=== PATIENT | male | born 1960 | race Caucasian/White ===

== ENCOUNTER 2021-10-12 13:40 | Emergency (ER) | payer SELFPAY ==
--- OUTSIDE RECORDS SUMMARY | 2021-10-12 13:44 | XMS REPORT | Continuity of Care Document ---
:1960 Author Organization [facility] t Address [address] [place] [address] Care Team Providers Name Role Phone Faulconer Attending Clinician Problems Condition Condition Condition Status Onset Resolution Last Treating Co mments Source Name Details Category Date Date Treatment Clinician Date No known No known Disease Unive rs active active ity of problems problems [facility] Allergies, Adverse Reactions, Alerts Allergy Allergy Status Severity Reaction(s) Onset Inactive Treating Comm ents Source Name Type Date Date Clinician Codeine Propensi Active Unknown - Seizure Uni vers ty to See comments 03-06 ity of adverse 00:00: [place] reaction 00 Medical s Branch CODEINE DRUG Active Unknown-Cmnt Uni vers INGREDI 03-06 ity of 00:00: [place] 00 Medical Branch Social History Social Habit Start Date Stop Date Quantity Comments Source Sex Assigned At Uni versity [facility] Exposure to SARS-CoV-2 Not sure [facility] [place] (event) [facility] Smoking Status Start Date Stop Date Source Unknown if ever smoked Universit y [facility] Medications Ordered Filled Start Stop Current Ordering Indication Dosage Frequency Signature Comments Components Source Medication Medication Date Date Medication? Clinician (SIG) Name Name amoxicillin 2020- No 1{tbl} 1 tablet, Univers -clavulanat 04-25 Oral, ity of e 04:00: 04:05 ONCE, 1 [place] (AUGMENTIN) 00 :00 dose, [facility] 875-125 mg 04/24/20 at [facility] per tablet 2300, 1 tablet ANT
Re ason for Anti-Infec tive: Documented Infection< br>Documen soledad Infection Site: Abdominal< br>Duratio n of Therapy: 7 days ibuprofen 2019- 2020- No 800mg 800 mg, Uni vers (IBU) 04-25 Oral, ity of tablet 800 02:30: 01:37 ONCE, 1 [place] as mg 00 :00 dose, [facility] 04/24/20 at Branch 2130, ANT ibuprofen 2019-0 Yes [id number] 800mg Take 1 Univers 800 mg 8-20 tablet by ity of tablet 00:00: mouth [place] 00 every 8 Medical (eight) Branch hours as needed for Temp > 38.5 C. amoxicillin 2019- 2020- No [id number] 1{tbl} Take 1 Univers -clavulanat 8-24 04- tablet by it y of e 875-125 00:00: 04:59 mouth [place] mg per 00 :00 every 12 Medical tablet (twelve) Branch hours for 7 days. naproxen 2018- Yes [id number] 550mg Take 1 Univers sodium 10-04 [id number] tablet by ity of (ANAPROX 00:00: mouth 2 [place] DS) 550 mg 00 (two) Medical tablet times Branch daily with meals. traMADol Yes [id number] 100mg Take 1 Univers 100 mg 24 10-04 [id number] tablet by ity of hr tablet 00:00: mouth [place] 00 daily. [facility] Immunizations Ordered Filled Immunization Date Status Comments [facility] e Immunization Name Name Td 2017-03-06 Completed [facility] 00:00:00 [facility] Vital Signs Vital Name Observation Time Observation Value Comments Source Systolic blood 2020-04-25 04:00:00 148 [facility]Hg[facility] Diastolic blood 2020-04-25 04:00:00 91 mm[Hg] [facility] Heart rate 2020-04-25 04:00:00 97 /min [facility] Respiratory rate 2020-04-25 04:00:00 19 /min [facility] Oxygen saturation in 2020-04-25 04:00:00 96 /min [facility] Arterial blood by [facility] Pulse oximetry Branch Body temperature 2020-04-25 00:46:00 38.22 [place] [facility] Body weight 2020-04-25 00:46:00 117.935 kg [facility] BMI 2020-04-25 00:46:00 36.26 kg/m2 [facility] Procedures Procedure Date / Time Performed Performing Clinician Sourc e CT ABDOMEN PELVIS WO 2020-04-25 02:17:00 Jose E Price [facility] CONTRAST Medical Branch COVID-19 (ID NOW RAPID 2020-04-25 02:00:00 [facility] Medical Branch URINALYSIS 2020-04-25 01:16:00 Jose E Price [facility] [place] [facility] NOTICE OF PRIVACY 2020-04-25 00:24:05 Doctor Unassigned, No [facility] PRACTICES Name Medical Branch CONSENT/REFUSAL FOR 2020-04-25 00:23:11 [facility] Name [facility] Branch TREATMENT Encounters Start End Encounter Admission Attending Care Care Encounter Source Date/Time Date/Time Type Type Clinicians Facility Department ID 2021-07-03 Emergency [facility] [id number] Univers 13:44:03 ity of [facility] 2020-04-24 2020-04-24 [facility] [id number] Univers 19:48:00 23:23:00 Jose E [place] [id number] i [facility] [id number] [facility] [id number] [facility] 084 Branch Results Test Test Test Results Result Source Description Time Comments Comments CT ABDOMEN Impression: 1. Acute Uni versity of PELVIS WO 21 sigmoid diverticulitis.2. [place] [facility] CONTRAST 03:40:49 Hepatomegaly.3. Upper Bra [facility] abdominal varices raise the possibility of portal venoushypertension.4. Atherosclerosis, including atherosclerotic artery disease. RL: 460 End of Report Ordering Physician: JOSE E PRICE History: Flank pain. Stone disease suspected.. Technique: CT abdomen and pelvis without intravenous contrast. Thisexamination was performed according to ALARA principles. Comparison: None. Findings: The liver is enlarged. The spleen is at the upper limits of normal in size.The gallbladder, pancreas, and adrenal glands are unremarkable.Specifically, there is no hydronephrosis and no radiopaque urinary tractcalculi are evident. Varices are seen within the upper abdomen. Evaluationof the stomach is limited by lack of distention, but no gross gastricabnormalities are apparent. There is atherosclerotic calcification of theabdominal aorta and its branches, with no evidence of aneurysm. The urinary bladder is unremarkable in appearance. Colonic diverticulosisis present. Stranding is seen adjacent to the distal sigmoid colon. Due totortuosity of the colon, this portion of the sigmoid is slightly to theright of midline. No abscess is present and no free intraperitoneal fluidor free intraperitoneal air is evident. An appendix is not visualized. Nopericecal inflammatory changes are evident. There is no bowel obstruction.Atheroscleroti c coronary artery disease is present. Mild subsegmentalatelectasis is seen within the included lung bases. There are degenerativechanges of the spine and hips. No acute bony abnormalities are evident. [facility], Radiant Results Inft User - 04/24/2020 10:41 PM CDTOrdering Physician: JOSE E CHAVARRIACONERHistory: Flank pain. Stone disease suspected..Technique: CT abdomen and pelvis without intravenous contrast. Thisexamination was performed according to ALARA principles.Comparison: None.Findings: The liver is enlarged. The spleen is at the upper limits of normal in size.The gallbladder, pancreas, and adrenal glands are unremarkable.Specifically, there is no hydronephrosis and no radiopaque urinary tractcalculi are evident. Varices are seen within the upper abdomen. Evaluationof the stomach is limited by lack of distention, but no gross gastricabnormalities are apparent. There is atherosclerotic calcification of theabdominal aorta and its branches, with no evidence of aneurysm.The urinary bladder is unremarkable in appearance. Colonic diverticulosisis present. Stranding is seen adjacent to the distal sigmoid colon. Due totortuosity of the colon, this portion of the sigmoid is slightly to theright of midline. No abscess is present and no free intraperitoneal fluidor free intraperitoneal air is evident. An appendix is not visualized. Nopericecal inflammatory changes are evident. There is no bowel obstruction.Atheroscleroti c coronary artery disease is present. Mild subsegmentalatelectasis is seen within the included lung bases. There are degenerativechanges of the spine and hips. No acute bony abnormalities are evident.IMPRESSIONImpressi on: 1. Acute sigmoid diverticulitis.2. Hepatomegaly.3. Upper abdominal varices raise the possibility of portal venoushypertension.4. Atherosclerosis, including atherosclerotic artery disease.RL: 460End of Report D-19 (ID NOW RAPID TESTING) 2020-04-25 02:47:00 Test Item Value Reference Range Interpretation Comme nts SARS-CoV-2 Rapid ID NOW (test code Not Detected Not Detected = 29120-7) JEOVANY (test code = JEOVANY) ID NOW COVID-19 Assay is an isothermal nucleic acid amplification test intended for the qualitative detection of nucleic acid from SARS-CoV-2 viral RNA in nasopharyngeal (BUTTON DECORATING MACHINE OPERATOR) specimens. It is used under Emergency Use Authorization (EUA) by FDA. The limit of detection (LOD) of the assay is 125 Genome Equivalents/mL. A positive result is indicative of the presence of SARS-CoV-2 RNA. ?Clinical correlation with patient history and other diagnostic information is necessary to determine patient infection status. A negative (Not Detected) result does not preclude SARS-CoV-2 infection. In patients with clinical symptoms and other tests that are consistent with SARS-CoV-2 infection, negative results should be treated as presumptive negative and a new specimen should be tested with alternative PCR molecular test. Invalid: Please collect a new specimen for repeat patient testing if clinically indicated. Lab Interpretation (test code = Normal 12263-4) [facility] Test Item Value Reference Range Interpretation Comments APPEARANCE (test code = Clear Clear 9117178292) COLOR (test code = Gwendolyn Yellow A 5344747119) PH (test code = 4.8-8.0 8962052385) SP GRAVITY (test code = 1.003-1.030 5141990396) GLU U QUAL (test code = Normal Normal 6787093283) BLOOD (test code = 3+ Negative A 5585990500) KETONES (test code = Negative Negative 2874907492) PROTEIN (test code = 100 mg/dL Negative A 2887-8) UROBILIN (test code = 4.0 mg/dL Normal A 7906200264) BILIRUBIN (test code = Negative Negative 8157653728) NITRITE (test code = Negative Negative 7835568129) LEUK ALTA (test code = Negative Negative 5764474318) RBC/HPF (test code = >182 See_Comment H [Autom ated message] 5801610139) The system [employer] generated this result transmit soledad reference range : 0 - 3 HPF. The refe rence range was not u sed to interpret th is result as normal/abnormal . WBC/HPF (test code = See_Comment [Autom ated message] 6708341444) The system [employer] generated this result transmit soledad reference range : 0 - 5 HPF. The refe rence range was not u sed to interpret th is result as normal/abnormal . BACTERIA (test code = Few Negative A 1718969397) MUCOUS (test code = Marked Negative LPF A 7740525117) Lab Interpretation (test Abnormal code = 89801-5) [facility]
[2021-10-12 15:05] LABS: Absolute Lymphocytes (CBC) 1.9 K/uL (0.7-4.9); Hematocrit 52.4 % (39.6-49.0); Lymphocytes % 19.8 % (15.3-44.8); MPV 9.2 fL (7.6-11.3); RBC Red Blood Cell Count 5.19 M/uL (4.33-5.43)
[2021-10-12 15:22] LABS: ALT/SGPT 23 U/L (12-78); AST/SGOT 14 U/L (15-37); Albumin 3.3 g/dL (3.4-5.0); Alkaline Phosphatase 112 U/L (45-117); BUN Blood Urea Nitrogen 14 mg/dL (7-18); Bicarbonate 27 mmol/L (21-32); Bilirubin Direct < 0.1 mg/dL (0-0.2); Bilirubin Total 0.3 mg/dL (0.2-1.0); Glucose Level 99 mg/dL (74-106); Lipase 89 U/L (73-393); Potassium 3.8 mmol/L (3.5-5.1); Protein, Total 6.8 g/dL (6.4-8.2); Sodium Level 140 mmol/L (136-145)
--- NOTE | 2021-10-12 16:03 | RAD REPORT ---
EXAM DESCRIPTION: CT - Abdomen Pelvis W Contrast - 10/12/2021 3:49 pm CLINICAL HISTORY: Abdominal pain COMPARISON: none. TECHNIQUE: Computed axial tomography of the abdomen pelvis was obtained. 100 cc Isovue-300 was admin istered intravenously. Oral contrast was not requested which limits evaluation of bowel. All CT scans are performed using dose optimization technique as appropriate and may include automated exposure control or mA/KV adjustment according to patient size. FINDINGS: The liver, spleen, pancreas, adrenal and kidneys appear unremarkable. Prominent sigmoid diverticulosis. Mild stranding adjacent to the sigmoid colon compatible with divert iculitis. No free air. No abscess. Small umbilical hernia Marked osteoarthritis left hip IMPRESSION: Mild sigmoid diverticulitis Marked osteoarthritis left hip
--- NOTE | 2021-10-12 16:18 | ER ---
Nurse's Notes [facility] Name: Randal Beckham Age: 61 yrs Sex: Male : 1960 Arrival Date: 10/12/2021 Time: 13:43 Bed 30 Private MD: Diagnosis: Diverticulitis sigmoid colon;Rectal bleeding Presentation: 10/12 14:01 Chief complaint: Patient states: Bloody stool earlier today, reports soft stool denies jl7 diarrhea. Coronavirus screen: At this time, the client does not indicate any symptoms associated with coronavirus-19. Ebola Screen: No symptoms or risks identified at this time. Initial Sepsis Screen: Does the patient meet any 2 criteria? No. Patient's initial sepsis screen is negative. Does the patient have a suspected source of infection? No. Patient's initial sepsis screen is negative. Risk Assessment: Do you want to hurt yourself or someone else? Patient reports no desire to harm self or others. Onset of symptoms was October 12, 2021. 14:01 Method Of Arrival: Ambulatory [facility] 14:01 Acuity: ASIF 3 jl7 Triage Assessment: 14:03 General: Appears in no apparent distress. uncomfortable, Behavior is calm, cooperative, jl7 appropriate for age. Pain: Denies pain. GI: Reports bloody stool. Historical: - Allergies: 14:03 Codeine; jl7 - Home Meds: 14:03 None [Active]; jl7 - PMHx: 14:03 None; jl7 - PSHx: 14:03 None; jl7 - Immunization history:: Client reports having NOT received the Covid vaccine. - Social history:: Smoking status: Patient reports the use of cigarette tobacco products, smokes one pack cigarettes per day. Screenin:04 Abuse screen: Denies threats or abuse. Denies injuries from another. Nutritional ld1 screening: No deficits noted. Tuberculosis screening: No symptoms or risk factors identified. Fall Risk None identified. Assessment: 15:04 General: Appears in no apparent distress. comfortable, Behavior is calm, cooperative, ld1 appropriate for age. Pain: Denies pain. Neuro: Level of Consciousness is awake, alert, obeys commands, Oriented to person, place, time, situation. Cardiovascular: Capillary refill < 3 seconds Patient's skin is warm and dry. Respiratory: Airway is patent Respiratory effort is even, unlabored. GI: Abdomen is round non-distended. GI: Reports bloody stool. : No signs and/or symptoms were reported regarding the genitourinary system. EENT: No signs and/or symptoms were reported regarding the EENT system. Derm: No signs and/or symptoms reported regarding the dermatologic system. Musculoskeletal: No signs and/or symptoms reported regarding the musculoskeletal system. Vital Signs: 14:01 BP 165 / 99; Pulse 84; Resp 17; Temp 98.6; Pulse Ox 97% ; Weight 117.93 kg; Height 5 jl7 ft. 10 in. (177.80 cm); Pain 0/10; 15:04 BP 159 / 89; Pulse 86; Resp 18; Pulse Ox 98% on R/A; ld1 16:17 BP 161 / 94; Pulse 84; Resp 18; Pulse Ox 98% on R/A; ld1 14:01 Body Mass Index 37.31 (117.93 kg, 177.80 cm) jl7 ED Course: 13:43 Patient arrived in ED. mr 14:03 Triage completed. jl7 14:03 Arm band placed on right wrist. jl7 14:09 Rina Fish, RADHA is Primary Nurse. ld1 14:10 Fitz Tinoco MD is Attending Physician. kdr 15:04 Patient has correct armband on for positive identification. Placed in gown. Bed in low ld1 position. Call light in reach. Side rails up X2. grading supervisor on. Pulse ox on. NIBP on. Door closed. Noise minimized. Warm blanket given. 15:04 No provider procedures requiring assistance completed. Inserted saline lock: 20 gauge ld1 in left antecubital area, using aseptic technique. Blood collected. 15:49 CT Abd/Pelvis - IV Contrast Only In Process Unspecified. EDMS 16:17 Troponin High Sensitivity Sent. ld1 16:38 IV discontinued, intact, bleeding controlled, No redness/swelling at site. ld1 Administered Medications: 16:37 Drug: metroNIDAZOLE 500 mg Route: PO; ld1 16:37 Drug: Cipro (ciprofloxacin) 500 mg Route: PO; ld1 Outcome: 16:18 Discharge ordered by . kdr 16:37 Discharged to home ambulatory, with family. ld1 16:37 Condition: stable 16:37 Discharge instructions given to patient, family, Instructed on discharge instructions, follow up and referral plans. medication usage, Demonstrated understanding of instructions, follow-up care, medications, Prescriptions given X 3. 16:38 Patient left the ED. ld1 Signatures: Dispatcher [employer] EDMS Fitz Tinoco MD MD kdr Rivera, Mary mr Leal, Jahala, RN RN jl7 Rina Fish RN RN ld1 Corrections: (The following items were deleted from the chart) 14:03 14:03 Allergies: No Known Allergies; edgar hernández
--- NOTE | 2021-10-12 16:18 | EDPHYS ---
Physician Documentation [facility] Name: Randal Beckham Age: 61 yrs Sex: Male : 1960 Arrival Date: 10/12/2021 Time: 13:43 Bed 30 Private MD: ED Physician Fitz Tinoco HPI: 10/12 18:11 This 61 yrs old Male presents to ER via Ambulatory with complaints of Bloody Stools. kdr 18:11 The patient presents to the emergency department with rectal bleeding, a moderate kdr amount, bright red blood with bowel movement, dark red blood with bowel movement with multiple such episodes, 2 times since symptom onset. Onset: The symptoms/episode began/occurred suddenly, this morning. Abdominal pain: described as achy, crampy, dull, located in the anterior aspect of left lateral abdomen, left upper quadrant and left lower quadrant. Modifying factors: The symptoms are alleviated by nothing, the symptoms are aggravated by nothing. Associated signs and symptoms: Pertinent positives: diarrhea. Severity of symptoms: At their worst the symptoms were mild this morning, in the emergency department the symptoms have improved. The patient has experienced a previous episode, a few years ago. The patient has not recently seen a physician. Historical: - Allergies: 14:03 Codeine; jl7 - Home Meds: 14:03 None [Active]; jl7 - PMHx: 14:03 None; jl7 - PSHx: 14:03 None; jl7 - Immunization history:: Client reports having NOT received the Covid vaccine. - Social history:: Smoking status: Patient reports the use of cigarette tobacco products, smokes one pack cigarettes per day. ROS: 18:11 Constitutional: Negative for fever, chills, and weight loss, Eyes: Negative for injury, kdr pain, redness, and discharge, Neck: Negative for injury, pain, and swelling, Cardiovascular: Negative for chest pain, palpitations, and edema, Respiratory: Negative for shortness of breath, cough, wheezing, and pleuritic chest pain, Back: Negative for injury and pain, MS/Extremity: Negative for injury and deformity, Skin: Negative for injury, rash, and discoloration, Neuro: Negative for headache, weakness, numbness, tingling, and seizure activity. Psych: Negative for depression, anxiety, suicide ideation, homicidal ideation, and hallucinations, Allergy/Immunology: Negative for hives, rash, and allergies. 18:11 Abdomen/GI: Positive for abdominal pain, nausea, rectal bleeding. Exam: 18:11 Constitutional: This is a well developed, well nourished patient who is awake, alert, kdr and in no acute distress. Head/Face: Normocephalic, atraumatic. Eyes: Pupils equal round and reactive to light, extra-ocular motions intact. Lids and lashes normal. Conjunctiva and sclera are non-icteric and not injected. Cornea within normal limits. Periorbital areas with no swelling, redness, or edema. Neck: Trachea midline, no thyromegaly or masses palpated, and no cervical lymphadenopathy. Supple, full range of motion without nuchal rigidity, or vertebral point tenderness. No Meningismus. Chest/axilla: Normal chest wall appearance and motion. Nontender with no deformity. No lesions are appreciated. Cardiovascular: Regular rate and rhythm with a normal S1 and S2. No gallops, murmurs, or rubs. Normal PMI, no JVD. No pulse deficits. Respiratory: Lungs have equal breath sounds bilaterally, clear to auscultation and percussion. No rales, rhonchi or wheezes noted. No increased work of breathing, no retractions or nasal flaring. Back: No spinal tenderness. No costovertebral tenderness. Full range of motion. Skin: Warm, dry with normal turgor. Normal color with no rashes, no lesions, and no evidence of cellulitis. MS/ Extremity: Pulses equal, no cyanosis. Neurovascular intact. Full, normal range of motion. Neuro: Awake and alert, GCS 15, oriented to person, place, time, and situation. Cranial nerves II-XII grossly intact. Motor strength 5/5 in all extremities. Sensory grossly intact. Cerebellar exam normal. Normal gait. Psych: Awake, alert, with orientation to person, place and time. Behavior, mood, and affect are within normal limits. 18:11 Abdomen/GI: Inspection: obese Bowel sounds: active, diminished, in all quadrants, Palpation: soft, mild abdominal tenderness, in the left lower quadrant, Rectal exam: Prostate: normal, rectal tone normal, Stool: guaiac negative, mass, is not appreciated, swelling, is not appreciated, tenderness, that is mild, the exam is chaperoned by the nurse. 18:25 ECG was reviewed by the Attending Physician. kdr Vital Signs: 14:01 BP 165 / 99; Pulse 84; Resp 17; Temp 98.6; Pulse Ox 97% ; Weight 117.93 kg; Height 5 jl7 ft. 10 in. (177.80 cm); Pain 0/10; 15:04 BP 159 / 89; Pulse 86; Resp 18; Pulse Ox 98% on R/A; ld1 16:17 BP 161 / 94; Pulse 84; Resp 18; Pulse Ox 98% on R/A; ld1 14:01 Body Mass Index 37.31 (117.93 kg, 177.80 cm) jl7 MDM: 16:18 Patient medically screened. kdr 18:15 Data reviewed: vital signs, nurses notes, lab test result(s), radiologic studies. kdr Counseling: I had a detailed discussion with the patient and/or guardian regarding: the historical points, exam findings, and any diagnostic results supporting the discharge/admit diagnosis, lab results, radiology results, the need for outpatient follow up. ED course: Patient was stable in the ED and without significant discomfort or further complications. He was happy with the care provided and the interventions that occurred. He was happy with the plan for discharge and follow-up. 10/12 14:10 Order name: Basic Metabolic Panel; Complete Time: 15:30 [facility] 10/12 14:10 Order name: CBC with Diff; Complete Time: 15:30 [facility] 10/12 14:10 Order name: Hepatic Function; Complete Time: 15:30 [facility] 10/12 14:10 Order name: Lipase; Complete Time: 15:30 [facility] 10/12 14:10 Order name: Type And Screen; Complete Time: 15:43 [facility] 10/12 15:28 Order name: Troponin High Sensitivity; Complete Time: 18:24 [facility] 10/12 14:10 Order name: IV Saline Lock; Complete Time: 14:56 [facility] 10/12 14:10 Order name: Labs collected and sent; Complete Time: 14:56 [facility] 10/12 14:43 Order name: CT Abd/Pelvis - IV Contrast Only; Complete Time: 16:16 [facility] 10/12 15:28 Order name: EKG - Nurse/Tech; Complete Time: 16:17 [facility] 10/12 15:38 Order name: ABO/RH no charge; Complete Time: 15:43 EDMS EC:25 Rate is 75 beats/min. Rhythm is regular, Normal Sinus Rhythm with No ectopy. QRS [place] kdr is Normal. PA interval is normal. QRS interval is normal. QT interval is normal. Clinical impression: Normal ECG. Administered Medications: 16:37 Drug: metroNIDAZOLE 500 mg Route: PO; ld1 16:37 Drug: Cipro (ciprofloxacin) 500 mg Route: PO; ld1 Disposition Summary: 10/12/21 16:18 Discharge Ordered Location: Home kdr Problem: new kdr Symptoms: have improved kdr Condition: Stable kdr Diagnosis - Diverticulitis sigmoid colon kdr - Rectal bleeding kdr Followup: kdr - With: Private Physician - When: 2 - 3 days - Reason: If symptoms return, Further diagnostic work-up, Recheck today's complaints, Continuance of care, Re-evaluation by your physician Discharge Instructions: - Discharge Summary Sheet kdr - Diverticulitis, [id number] kdr - Nausea and Vomiting, Adult, [id number] kdr Forms: - Medication Reconciliation Form kdr - Thank You Letter kdr - Antibiotic Education kdr Prescriptions: - Flagyl 500 mg Oral Tablet - take 1 tablet by ORAL route every 6 hours for 10 days; 40 tablet; Refills: 0, kdr Product Selection Permitted - Zofran 4 mg Oral Tablet - take 1 tablet by ORAL route every 4-6 hours As needed; 12 tablet; Refills: 0, kdr Product Selection Permitted - Cipro 500 mg Oral Tablet - take 1 tablet by ORAL route every 12 hours for 10 days; 20 tablet; Refills: 0, kdr Product Selection Permitted - Tramadol 50 mg Oral Tablet - take 1 tablet by ORAL route every 8 hours As needed as needed; 12 tablet; kdr Refills: 0, Product Selection Permitted Signatures: Dispatcher [employer] [facility] Fitz Tinoco MD MD kdr Diony Combs RN RN jl7 Rina Fish RN RN ld1 Corrections: (The following items were deleted from the chart) 14:03 14:03 Allergies: No Known Allergies; edgar jl7
[2021-10-12] MEDS ORDERED: CIPROFLOXACIN HCL 500 MG TAB ONE (16:21)
[2021-10-12] MEDS ORDERED: metroNIDAZOLE 500 MG TABLET ONE (16:21)
[2021-10-12 17:25] VITALS: TEMP 98.6
[2021-10-12 17:26] VITALS: O2SAT 98
[2021-10-12 17:27] VITALS: BP 161/94
--- NOTE | 2021-10-13 09:00 | EKG ---
Test Date: 2021-10-12 Test Time: 16:06:34 Land Ac[employer] Analyst: ANGELA MEASUREMENT RESULTS: Intervals: Rate: 75 ND: 154 QRSD: 92 QT: 400 QTc: 446 [place]: P: 56 ND: 154 QRS: 46 T: 36 INTERPRETIVE STATEMENTS: Normal sinus rhythm Normal ECG No previous ECG available for comparison Electronically Signed On 10-13-21 08:57:31 [employer] by Harshad Aviles
== END 2021-10-12 16:38 | disposition home or self-care (01) ==
LOC: ER 13:40
DX: K57.33 Diverticulitis of large intestine without perforation or abscess with bleeding (principal); F17.210 Nicotine dependence, cigarettes, uncomplicated; Z88.5 Allergy status to narcotic agent
CPT/HCPCS: 36415; 74177; 80048; 80076; 83690; 84484; 85025; 86850; 86900; 86901; 93005; 99284; Q9967

== ENCOUNTER 2021-10-18 11:27 | Inpatient (IN) | payer SELFPAY ==
--- OUTSIDE RECORDS SUMMARY | 2021-10-18 11:30 | XMS REPORT | Continuity of Care Document ---
:1960 Author Organization [facility] t Address [address] [place] [address] Care Team Providers Name Role Phone Dee CHURCH Attending Clinician Problems Condition Condition Condition Status Onset Resolution Last Treating Co mments Source Name Details Category Date Date Treatment Clinician Date No known No known Disease Unive rs active active ity of problems problems [facility] Allergies, Adverse Reactions, Alerts Allergy Allergy Status [...] Comments Source Sex Assigned At Uni versity [facility] Exposure to SARS-CoV-2 Not sure [facility] [place] [facility] Branch Smoking Status Start Date Stop Date Source Unknown if ever smoked [facility]it y [facility] Medications Ordered Filled Start Stop Current Ordering Indication Dosage Frequency Signature Comments Components Source Medication Medication Date Date Medication? Clinician (SIG) Name Name amoxicillin 2019- No 1{tbl} 1 tablet, Univers -clavulanat 04-25 Oral, ity of e 04:00: 04:05 ONCE, 1 [place] (AUGMENTIN) 00 :00 dose, [facility] 875-125 mg 04/24/20 at [facility] per tablet 2300, 1 tablet ANT
Re ason for Anti-Infec tive: Documented Infection< br>Documen soledad Infection Site: Abdominal< br>Duratio n of Therapy: 7 days ibuprofen 2019- No 800mg 800 mg, Uni vers (IBU) 04-25 Oral, ity of tablet 800 02:30: 01:37 ONCE, 1 [place] as mg 00 :00 dose, [facility] 04/24/20 at Branch 2130, ANT ibuprofen 2019- Yes [id number] 800mg Take 1 Univers 800 mg 8-20 tablet by ity of tablet 00:00: mouth [place] 00 every 8 Medical (eight) Branch hours as needed for Temp > 38.5 C. amoxicillin 2020- No [id number] 1{tbl} Take 1 Univers -clavulanat 04-24 tablet by it y of e 875-125 00:00: 04:59 mouth [place] mg per 00 :00 every 12 Medical tablet (twelve) Branch hours for 7 days. naproxen Yes [id number] 550mg Take 1 Univers sodium - 044547 tablet by ity of (ANAPROX 00:00: mouth 2 [place] DS) 550 mg 00 (two) Medical tablet times Branch daily with meals. traMADol Yes [id number] 100mg Take 1 Univers 100 mg 24 -30 [id number] tablet by ity of hr tablet 00:00: mouth [place] 00 daily. [facility] Immunizations Ordered Filled Immunization Date Status Comments [facility] e Immunization Name Name Td 2017-03-06 Completed [facility] 00:00:00 [facility] Vital Signs Vital Name Observation Time Observation Value Comments Source Systolic blood 2020-04-25 04:00:00 148 mm[Hg] [facility] Diastolic blood 2020-04-25 04:00:00 91 mm[Hg] [facility] Heart rate 2020-04-25 04:00:00 97 /min [facility] acute hospital Respiratory rate 2020-04-25 04:00:00 19 /min [facility] Oxygen saturation in 2020-04-25 04:00:00 96 /min [facility] Arterial blood by [facility] Pulse oximetry [place] Body temperature 2020-04-25 00:46:00 38.22 [place] [facility] Body weight 2020-04-25 00:46:00 117.935 kg [facility] acute hospital BMI 2020-04-25 00:46:00 36.26 kg/m2 [facility] acute hospital Procedures Procedure Date / Time Performed Performing Clinician Lucia e CT ABDOMEN PELVIS WO 2020-04-25 02:17:00 Jose E Price [facility] CONTRAST Medical Branch COVID-19 (ID NOW RAPID 2020-04-25 02:00:00 [facility] Medical Branch URINALYSIS 2020-04-25 01:16:00 [facility] E [facility] [place] [facility] NOTICE OF PRIVACY 2020-04-25 00:24:05 Doctor Unassigned, No [facility] PRACTICES Name Medical Branch CONSENT/REFUSAL FOR 2020-04-25 00:23:11 Doctor Unassigned, No [facility] AND Name Medical Branch TREATMENT Encounters Start End Encounter Admission Attending Care Care Encounter Source Date/Time Date/Time Type Type Clinicians Facility Department ID 2021-07-03 Emergency [facility] [id number] Univers 13:44:03 ity of [facility] 2020-04-24 2020-04-24 [facility] [id number] Univers 19:48:00 23:23:00 Jose E [place] [id number] [facility] [id number] [facility] [id number] [facility] 084 Branch Results Test Test Test Results Result Source Description Time Comments Comments CT ABDOMEN Impression: 1. Acute Uni versity of PELVIS WO sigmoid diverticulitis.2. [place] [facility] CONTRAST 03:40:49 Hepatomegaly.3. [place] [facility] abdominal varices raise the possibility of portal [...] (test code Not Detected Not Detected = 89107-3) JEOVANY (test code = JEOVANY) ID NOW COVID-19 Assay is an isothermal nucleic acid amplification test intended for the qualitative detection of nucleic acid from SARS-CoV-2 viral RNA in nasopharyngeal (GYPSUM ROOFER) specimens. It is used under Emergency Use [...] indicated. Lab Interpretation (test code = Normal 06107-1) [facility] Test Item Value Reference Range Interpretation Comments APPEARANCE (test code = Clear Clear 4043923329) COLOR (test code = Gwendolyn Yellow A 8315691814) PH (test code = 4.8-8.0 9492423298) SP GRAVITY (test code = 1.003-1.030 0789547195) GLU U QUAL (test code = Normal Normal 3788426770) BLOOD (test code = 3+ Negative A 4057707460) KETONES (test code = Negative Negative 6803289270) PROTEIN (test code = 100 mg/dL Negative A 2887-8) UROBILIN (test code = 4.0 mg/dL Normal A 1444445585) BILIRUBIN (test code = Negative Negative 3555725989) NITRITE (test code = Negative Negative 9086288023) LEUK ALTA (test code = Negative Negative 6710719899) RBC/HPF (test code = >182 See_Comment H [Autom ated message] 4304360135) The system Taptu generated this result transmit soledad reference range : 0 - 3 HPF. The refe rence range was not u sed to interpret th is result as normal/abnormal . WBC/HPF (test code = See_Comment [Autom ated message] 8239311118) The system Taptu generated this result transmit soledad reference range : 0 - 5 HPF. The refe rence range was not u sed to interpret th is result as normal/abnormal . BACTERIA (test code = Few Negative A 1611827284) MUCOUS (test code = Marked Negative LPF A 8024196251) Lab Interpretation (test Abnormal code = 58770-2) [facility]
[2021-10-18] MEDS ORDERED: MORPHINE 4 MG/ML SYR ONE ×2 (12:21→15:44)
[2021-10-18] MEDS ORDERED: ONDANSETRON 4 MG/2 ML VIAL ONE (12:21)
[2021-10-18 12:55] LABS: Absolute Lymphocytes (CBC) 1.6 K/uL (0.7-4.9); Hematocrit 52.6 % (39.6-49.0); Lymphocytes % 9.1 % (15.3-44.8); MPV 9.8 fL (7.6-11.3); Protime INR 1.13; RBC Red Blood Cell Count 5.18 M/uL (4.33-5.43)
[2021-10-18 12:57] LABS: BUN Blood Urea Nitrogen 11 mg/dL (7-18); Bicarbonate 26 mmol/L (21-32); Glucose Level 111 mg/dL (74-106); Potassium 3.6 mmol/L (3.5-5.1); Sodium Level 138 mmol/L (136-145)
--- NOTE | 2021-10-18 13:38 | ER ---
Nurse's Notes [facility] Name: Randal Beckham Age: 61 yrs Sex: Male : 1960 Arrival Date: 10/18/2021 Time: 11:28 Bed 2 Private MD: Diagnosis: Right lower extremity DVT;GI Bleed/ Gastrointestinal hemorrhage, unspecified Presentation: 10/18 11:47 Chief complaint: Patient states: Right foot pain x 3 days, worse today; also reports jl7 after being discharged Tuesday with GI bleed, had red stools but then Tuesday it turned to black stool. This morning it wasn't as dark. Coronavirus screen: At this time, the client does not indicate any symptoms associated with coronavirus-19. Ebola Screen: No symptoms or risks identified at this time. Initial Sepsis Screen: Does the patient meet any 2 criteria? No. Patient's initial sepsis screen is negative. Does the patient have a suspected source of infection? No. Patient's initial sepsis screen is negative. Risk Assessment: Do you want to hurt yourself or someone else? Patient reports no desire to harm self or others. Onset of symptoms was October 16, 2021. 11:47 Method Of Arrival: Wheelchair jl7 11:47 Acuity: ASIF 3 jl7 Triage Assessment: 11:50 General: Appears in no apparent distress. uncomfortable, Behavior is calm, cooperative, jl7 appropriate for age. Pain: Complains of pain in right foot Pain currently is 25 out of 10 on a pain scale. Historical: - Allergies: 11:50 Codeine; jl7 - PMHx: 11:50 Diverticulitis; jl7 - PSHx: 11:50 None; jl7 - Immunization history:: Client reports having NOT received the Covid vaccine. - Social history:: Smoking status: Patient reports the use of cigarette tobacco products, smokes 1.5 packs per day. Screenin:21 Abuse screen: Denies threats or abuse. Denies injuries from another. Nutritional vg1 screening: No deficits noted. Tuberculosis screening: No symptoms or risk factors identified. Fall Risk No fall in past 12 months (0 pts). No secondary diagnosis (0 pts). IV access (20 points). Ambulatory Aid- None/Bed Rest/Nurse Assist (0 pts). Gait- Normal/Bed Rest/Wheelchair (0 pts) Mental Status- Oriented to own ability (0 pts). Total Garcia Fall Scale indicates No Risk (0-24 pts). Assessment: 13:00 General: Appears in no apparent distress. uncomfortable, Behavior is calm, cooperative. eo2 Pain: Complains of pain in right foot and left hip. Neuro: Level of Consciousness is awake, alert, obeys commands, Oriented to person, place, time, situation, Denies dizziness, headache. Cardiovascular: Denies chest pain, shortness of breath, Capillary refill < 3 seconds. Respiratory: Airway is patent Trachea midline Respiratory effort is even, unlabored, Respiratory pattern is regular, Breath sounds are clear bilaterally. Denies shortness of breath. GI: Abdomen is round Reports bloody stool, Patient currently denies abdominal pain. Musculoskeletal: Reports pain in right foot and left hip. 15:19 Reassessment: pt reports ongoing pain, received order for morphine 4mg IVP once from eo2 Dr. Tinoco. Order placed. Vital Signs: 11:47 BP 171 / 87; Pulse 89; Resp 17; Temp 99.2; Pulse Ox 97% ; Weight 117.93 kg; Height 5 jl7 ft. 10 in. (177.80 cm); Pain 10/10; 12:35 Pain 10/10; eo2 13:35 Pain 9/10; eo2 14:00 BP 157 / 93; Pulse 82; Resp 17; Pulse Ox 96% ; eo2 15:00 BP 165 / 91; Pulse 87; Resp 17; Pulse Ox 96% ; eo2 15:45 BP 142 / 92; Pulse 93; Resp 17; Pulse Ox 95% ; Pain 10/10; eo2 11:47 Body Mass Index 37.31 (117.93 kg, 177.80 cm) jl7 ED Course: 11:28 Patient arrived in ED. mr 11:50 Triage completed. jl7 11:50 Arm band placed on right wrist. jl7 11:58 Fitz Tinoco MD is Attending Physician. kdr 12:19 Mallory Vázquez, RN is Primary Nurse. vg1 12:21 Patient has correct armband on for positive identification. Placed in gown. Bed in low vg1 position. Call light in reach. Side rails up X 1. nurse monitoring on. Pulse ox on. NIBP on. Door closed. Noise minimized. 13:00 US Extremity Venous Unilateral Ltd In Process Unspecified. EDMS 13:06 Hedy Aguirre, RN is Primary Nurse. eo2 13:06 Foot Right 3 View XRAY In Process Unspecified. EDMS 13:06 Ankle Right 3 View XRAY In Process Unspecified. EDMS 13:37 Migdalia Toussaint MD is Hospitalizing Provider. kdr 13:48 COVID swab sent to lab. vg1 14:19 No provider procedures requiring assistance completed. eo2 16:05 Report given to ED GARCIA. eo2 16:20 Patient admitted, IV remains in place. iw Administered Medications: 12:35 Drug: morphine 4 mg Route: IVP; Site: left antecubital; iw 13:35 Follow up: Response: No adverse reaction eo2 12:35 Drug: Zofran (Ondansetron) 4 mg Route: IVP; Site: left antecubital; iw 13:35 Follow up: Response: No adverse reaction eo2 15:47 Drug: Lovenox (enoxaparin) 1 mg/kg Route: Sub-Q; Site: left upper abdomen; eo2 15:47 Drug: Lovenox (enoxaparin) 120 mg Route: Sub-Q; Site: left upper abdomen; eo2 15:49 Drug: morphine 4 mg Route: IVP; Site: left antecubital; eo2 Outcome: 13:37 Decision to Hospitalize by Provider. kdr 16:05 Admitted to Med/surg accompanied by tech. eo2 16:05 Admitted to Med/surg family with patient. 16:05 Condition: stable 16:05 Discharge instructions given to patient, Instructed on the need for admit, Demonstrated understanding of instructions. 16:20 Patient left the ED. iw Signatures: Dispatcher [employer] EDMS iFtz Tinoco MD MD kdr Rivera, Jasmyn Luis, RN RADHA iw Diony Combs RN RN jl7 Mallory Vázquez RN RN vg1 Hedy Aguirre, RADHA RN eo2
--- NOTE | 2021-10-18 13:38 | EDPHYS ---
Physician Documentation [facility] Name: Randal Beckham Age: 61 yrs Sex: Male : 1960 Arrival Date: 10/18/2021 Time: 11:28 Bed 2 Private MD: ED Physician Fitz Tinoco HPI: 10/18 12:13 This 61 yrs old Male presents to ER via Wheelchair with complaints of Foot Pain. kdr 12:13 The patient presents with decreased range of motion, pain, that is acute, swelling, kdr tenderness. The complaints affect the right foot. Context: The problem was sustained at home, resulted from an unknown cause, the patient is not able to bear weight, the patient is able to ambulate, with severe difficulty. Onset: The symptoms/episode began/occurred The patient first noted pain in his arch on Tuesday. Since then the pain has become progressively worse and extend up his leg.. Modifying factors: The symptoms are alleviated by nothing, the symptoms are aggravated by weight bearing, movement. Associated signs and symptoms: The patient has no apparent associated signs or symptoms. Severity of symptoms: At their worst the symptoms were moderate, just prior to arrival, severe, in the emergency department the symptoms are unchanged. The patient has not experienced similar symptoms in the past. The patient has not recently seen a physician. Historical: - Allergies: 11:50 Codeine; jl7 - PMHx: 11:50 Diverticulitis; jl7 - PSHx: 11:50 None; jl7 - Immunization history:: Client reports having NOT received the Covid vaccine. - Social history:: Smoking status: Patient reports the use of cigarette tobacco products, smokes 1.5 packs per day. ROS: 12:13 Constitutional: Negative for fever, chills, and weight loss, Eyes: Negative for injury, kdr pain, redness, and discharge, Neck: Negative for injury, pain, and swelling, Cardiovascular: Negative for chest pain, palpitations, and edema, Respiratory: Negative for shortness of breath, cough, wheezing, and pleuritic chest pain, Back: Negative for injury and pain, : Negative for injury, bleeding, discharge, and swelling, Neuro: Negative for headache, weakness, numbness, tingling, and seizure activity. Psych: Negative for depression, anxiety, suicide ideation, homicidal ideation, and hallucinations, Allergy/Immunology: Negative for hives, rash, and allergies, Endocrine: Negative for neck swelling, polydipsia, polyuria, polyphagia, and marked weight changes, Hematologic/Lymphatic: Negative for swollen nodes, abnormal bleeding, and unusual bruising. Exam: 19:14 Constitutional: This is a well developed, well nourished patient who is awake, alert, kdr and in no acute distress. Head/Face: Normocephalic, atraumatic. Eyes: Pupils equal round and reactive to light, extra-ocular motions intact. Lids and lashes normal. Conjunctiva and sclera are non-icteric and not injected. Cornea within normal limits. Periorbital areas with no swelling, redness, or edema. Neck: Trachea midline, no thyromegaly or masses palpated, and no cervical lymphadenopathy. Supple, full range of motion without nuchal rigidity, or vertebral point tenderness. No Meningismus. Chest/axilla: Normal chest wall appearance and motion. Nontender with no deformity. No lesions are appreciated. Cardiovascular: Regular rate and rhythm with a normal S1 and S2. No gallops, murmurs, or rubs. Normal PMI, no JVD. No pulse deficits. Respiratory: Lungs have equal breath sounds bilaterally, clear to auscultation and percussion. No rales, rhonchi or wheezes noted. No increased work of breathing, no retractions or nasal flaring. Abdomen/GI: Soft, non-tender, with normal bowel sounds. No distension or tympany. No guarding or rebound. No evidence of tenderness throughout. Back: No spinal tenderness. No costovertebral tenderness. Full range of motion. Skin: Warm, dry with normal turgor. Normal color with no rashes, no lesions, and no evidence of cellulitis. Neuro: Awake and alert, GCS 15, oriented to person, place, time, and situation. Cranial nerves II-XII grossly intact. Motor strength 5/5 in all extremities. Sensory grossly intact. Cerebellar exam normal. Normal gait. Psych: Awake, alert, with orientation to person, place and time. Behavior, mood, and affect are within normal limits. 19:14 Musculoskeletal/extremity: Extremities: grossly normal except: noted in the lateral aspect of right calf, right ankle, right calf, right Achilles, medial aspect of right calf, right torres, anterior aspect of right ankle and dorsum of right foot: erythema, pain, swelling, tenderness, Warm to touch. Vital Signs: 11:47 BP 171 / 87; Pulse 89; Resp 17; Temp 99.2; Pulse Ox 97% ; Weight 117.93 kg; Height 5 7 ft. 10 in. (177.80 cm); Pain 10/10; 12:35 Pain 10/10; eo2 13:35 Pain 9/10; eo2 14:00 BP 157 / 93; Pulse 82; Resp 17; Pulse Ox 96% ; eo2 15:00 BP 165 / 91; Pulse 87; Resp 17; Pulse Ox 96% ; eo2 15:45 BP 142 / 92; Pulse 93; Resp 17; Pulse Ox 95% ; Pain 10/10; eo2 11:47 Body Mass Index 37.31 (117.93 kg, 177.80 cm) 7 MDM: 13:37 Patient medically screened. kdr 19:14 Data reviewed: vital signs, nurses notes, lab test result(s), radiologic studies. kdr Counseling: I had a detailed discussion with the patient and/or guardian regarding: the historical points, exam findings, and any diagnostic results supporting the discharge/admit diagnosis, lab results, radiology results, the need for outpatient follow up. 10/18 12:13 Order name: CBC with Diff; Complete Time: 19:15 kdr 10/18 12:13 Order name: Chem 7; Complete Time: 19:15 kdr 10/18 12:13 Order name: PT-INR; Complete Time: 19:15 kdr 10/18 13:41 Order name: SARS-COV-2 RT PCR (Document "Date of Onset" if Symptomatic); Complete Time: eb 19:10/18 14:27 Order name: CBC with Automated Diff EDMS 10/18 14:27 Order name: Comprehensive Metabolic Panel EDMS 10/18 12:13 Order name: US Extremity Venous Unilateral Ltd; Complete Time: 19:15 kdr 10/18 12:20 Order name: Foot Right 3 View XRAY; Complete Time: 19:15 kdr 10/18 12:20 Order name: Ankle Right 3 View XRAY; Complete Time: 19:15 kdr 10/18 14:27 Order name: Comprehensive Metabolic Panel EDMS 10/18 14:27 Order name: Protime (+INR) EDMS 02/13 14:27 Order name: Protime (+INR) EDMS 10/18 14:27 Order name: PTT, Activated Partial Thromb EDMS 10/18 14:27 Order name: PTT, Activated Partial Thromb EDMS 10/18 14:27 Order name: Heart Healthy EDMS Administered Medications: 12:35 Drug: morphine 4 mg Route: IVP; Site: left antecubital; iw 13:35 Follow up: Response: No adverse reaction eo2 12:35 Drug: Zofran (Ondansetron) 4 mg Route: IVP; Site: left antecubital; iw 13:35 Follow up: Response: No adverse reaction eo2 15:47 Drug: Lovenox (enoxaparin) 1 mg/kg Route: Sub-Q; Site: left upper abdomen; eo2 15:47 Drug: Lovenox (enoxaparin) 120 mg Route: Sub-Q; Site: left upper abdomen; eo2 15:49 Drug: morphine 4 mg Route: IVP; Site: left antecubital; eo2 Disposition Summary: 10/18/21 13:37 Hospitalization Ordered Hospitalization Status: Observation kdr Provider: Migdalia Toussaint Location: Telemetry/MedSurg (observation) kdr Condition: Fair kdr Problem: new kdr Symptoms: have improved kdr Bed/Room Type: Standard kdr Room Assignment: 204(10/18/21 15:25) dw Diagnosis - Right lower extremity DVT kdr - GI Bleed/ Gastrointestinal hemorrhage, unspecified kdr Forms: - Medication Reconciliation Form kdr - SBAR form kdr Signatures: Dispatcher [employer] EDIL Analia Guevara RN RADHA dw Fitz Tinoco MD MD kdr Jasmyn Mena RN RN iw Leal, Jahala, RN RN jl7 Hedy Aguirre RN RN eo2 Corrections: (The following items were deleted from the chart) 15:25 13:37 kdr dw
[2021-10-18] MEDS ORDERED: ONDANSETRON 4 MG/2 ML VIAL IV PRN (14:25)
--- NOTE | 2021-10-18 14:28 | RAD REPORT ---
EXAM DESCRIPTION: US - Extremity Venous Uni Ltd - 10/18/2021 1:00 pm CLINICAL HISTORY: warmth from knee down;Pain COMPARISON: None. TECHNIQUE: Real-time sonographic evaluation of the right lower extremity deep venous systems was per formed. FINDINGS: Normal compressibility, flow augmentation, phasic flow and spontaneous flow are identified in the right lower extremity common femoral, popliteal and posterior tibial veins. No intraluminal f illing defects seen. The midportion of the femoral vein showed only partial compression. Proximal and distal portions full y compressed. On visual inspection and on Doppler assessment normal blood flow was seen with no visib le thrombus. Patient had difficulty fully cooperating with the examination during compression. This m ay be the reason for the incomplete femoral vein compression. Old thrombus scarring in the vein would be possible etiology as well. IMPRESSION: No acute right lower extremity deep venous thrombosis. Incomplete compression of the right mid femoral vein is not believed to be due to an acute thrombotic process.
--- NOTE | 2021-10-18 14:29 | RAD REPORT ---
EXAM DESCRIPTION: RAD - Foot Right 3 View - 10/18/2021 1:06 pm CLINICAL HISTORY: PAIN COMPARISON: No comparisons FINDINGS: No fracture, dislocation or periosteal reaction. No acute or destructive bone process. Sma ll plantar spur is present. There is minimal spurring at the Achilles attachment. No air or foreign body in the soft tissues. IMPRESSION: Negative right foot examination for acute or suspicious finding.
--- NOTE | 2021-10-18 14:30 | RAD REPORT ---
EXAM DESCRIPTION: RAD - Ankle Right 3 View - 10/18/2021 1:06 pm CLINICAL HISTORY: PAIN COMPARISON: No comparisons FINDINGS: No fracture, dislocation or periosteal reaction. No joint effusion seen. Small spurs are p resent at the Achilles and plantar attachment sites. No joint space narrowing. No soft tissue abnorma lity. IMPRESSION: Small plantar spur. No significant bone or joint finding.
[2021-10-18] MEDS: NA CHLORIDE 0.9% 1,000 ML IV SCH ×2 (15:00→16:31)
[2021-10-18] MEDS ORDERED: Enoxaparin 120 MG/0.8 ML SYR SQ SCH (16:00)
[2021-10-18 16:30] VITALS: O2SAT 95
[2021-10-18 16:46] VITALS: BMI 37.1
[2021-10-18] MEDS ORDERED: HYDROCORTISONE SUC 100 MG INJ IV ONE (17:11)
[2021-10-18] MEDS: ACETAMINOPHEN 500 MG TAB PO PRN (17:51)
[2021-10-18] MEDS: MORPHINE 2 MG/ML SYR IV PRN (20:19)
--- NOTE | 2021-10-18 20:46 | P.HP ---
Certification for Inpatient Patient admitted to: Observation With expected LOS: <2 Midnights Patient will require the following post-hospital care: None Practitioner: I am a practitioner with admitting privileges, knowledge of patient current condition, hospital course, and medical plan of care. Services: Services provided to patient in accordance with Admission requirements found in Title 42 Section 412.3 of the Code of Federal Regulations Patient History Date of Service: 10/18/21 Reason for admission: RLE thrombophlebitis History of Present Illness: Patient is a 61-year-old gentleman who came to the hospital with right ankle pain. Patient had x-rays performed which were negative. Patient had venous Doppler which revealed no significant abnormalities. Initial thought was that patient had a right lower extremity DVT. However, on radiologist did not report this. Patient does have varicose veins. Patient may have thrombophlebitis. At this time, we will admit the patient to the hospital for observation. Allergies codeine Allergy (Verified 10/18/21 17:51) NOT KNOWN Home Medications: Ciprofloxacin HCl [Cipro 500 MG Tablet] 500 mg PO BID 10/18/21 Metronidazole 500 mg PO Q6H 10/18/21 Tramadol HCl [Ultram] 50 mg PO Q8H PRN 10/18/21 - Past Medical/Surgical History -: Diverticulitis Past Surgical History: Patient denies surgical history - Family History Father Family History: Reviewed- Non-Contributory - Social History Smoking Status: Current every day smoker Alcohol use: No CD- Drugs: No Review of Systems 10-point ROS is otherwise unremarkable Physical Examination - Vital Signs Temperature: 99.2 F Blood Pressure: 142/92 Pulse: 93 Respirations: 18 Pulse Ox (%): 97 - Physical Exam General: Alert, In no apparent distress, Oriented x3 HEENT: Atraumatic, PERRLA, Mucous membr. moist/pink, EOMI, Sclerae nonicteric Neck: Supple, 2+ carotid pulse no bruit, No LAD, Without JVD or thyroid abnormality Respiratory: Clear to auscultation bilaterally, Normal air movement Cardiovascular: Regular rate/rhythm, Normal S1 S2, No murmurs Gastrointestinal: Normal bowel sounds, Soft and benign, Non-distended, No tende rness Musculoskeletal: No clubbing, No swelling, Tenderness, Other (Hip pain) Integumentary: Tenderness/swelling Neurological: Normal gait, Normal speech, Normal strength at 5/5 x4 extr, Normal tone, Sensation intact, Cranial nerves 3-12 intact, Normal affect Lymphatics: No axilla or inguinal lymphadenopathy - Studies Laboratory Data (last 24 hrs) 10/18/21 12:30: PT 13.0 H, INR 1.13 10/18/21 12:30: Sodium 138, Potassium 3.6, BUN 11, Creatinine 0.78, Glucose 111 H 10/18/21 12:30: WBC 17.00 H D, Hgb 17.5, Hct 52.6 H, Plt Count 231 Assessment & Plan - Problems (Diagnosis) (1) Superficial thrombophlebitis of right leg Current Visit: Yes Status: Acute (2) History of diverticulosis Current Visit: Yes Status: Acute - Plan Plan: 1. Continue anti-inflammatory; anticipate discharge home in a.m. 2. Protonix 3. Carafate 4. Pain control 5. Repeat labs 6. DVT prophylaxis Discharge Plan: Home Plan to discharge in: Greater than 2 days - Advance Directives Does patient have a Living Will: No Does patient have a Durable POA for Healthcare: No - Code Status/Comfort Care Code Status Assessed: Yes Code Status: Full Code Critical Care: No Time Spent Managing PTS Care (In Minutes): 45
[2021-10-19] MEDS: MORPHINE 2 MG/ML SYR IV PRN ×4 (00:18→21:28)
[2021-10-19] MEDS: ACETAMINOPHEN 500 MG TAB PO PRN ×2 (00:28→07:40)
[2021-10-19] MEDS: HYDROCORTISONE SUC 100 MG INJ IV SCH ×3 (00:29→17:01)
[2021-10-19 05:44] LABS: Absolute Lymphocytes (CBC) 1.2 K/uL (0.7-4.9); Hematocrit 46.1 % (39.6-49.0); Lymphocytes % 10.2 % (15.3-44.8); MPV 9.6 fL (7.6-11.3); RBC Red Blood Cell Count 4.59 M/uL (4.33-5.43)
[2021-10-19 05:49] LABS: Protime INR 1.36
--- NOTE | 2021-10-19 06:07 | P.PN ---
Date of Service: 10/19/21 Subjective: Feeling 50 to 60% better this morning Able to put some weight on his foot now, where last night he could not even tolerate blanket over his foot Pain is mostly dorsum of big toe and anterior ankle Still unable to walk on his foot ROS: 10 point ROS as noted above, otherwise negative Physical exam GEN: Alert, oriented, NAD HEENT: Normal conjunctiva, sclera anicteric CV: Regular rate and rhythm, no edema Pulm: Nonlabored respirations on room air MSK: tenderness to palpation at R great toe - MCP joint, and ankle joint, swelling noted at joints Integumentary: No rashes Neuro: Normal speech, normal affect Problem List Superficial thrombophlebitis of right leg Suspect acute gout attack Recent sigmoid diverticulitis, with bleed Continue steroids for possible acute gout, patient with moderate improvement overnight We will check uric acid level Venous Doppler negative for DVT Continue with DVT prophylaxis Pain control Continue home medications Continue antibiotics for recent sigmoid diverticulitis diagnosis Hemoglobin stable VTE: lovenox Code: full Dispo: anticipate dc home tomorrow Time Spent Managing Pts Care (In Minutes): 35
[2021-10-19 06:12] LABS: ALT/SGPT 25 U/L (12-78); AST/SGOT 12 U/L (15-37); Albumin 2.7 g/dL (3.4-5.0); Alkaline Phosphatase 72 U/L (45-117); BUN Blood Urea Nitrogen 11 mg/dL (7-18); Bicarbonate 29 mmol/L (21-32); Bilirubin Total 0.5 mg/dL (0.2-1.0); Glucose Level 123 mg/dL (74-106); Potassium 3.6 mmol/L (3.5-5.1); Sodium Level 140 mmol/L (136-145)
[2021-10-19] MEDS: NA CHLORIDE 0.9% 1,000 ML IV SCH (06:54)
[2021-10-19] MEDS: metroNIDAZOLE 500 MG TABLET PO SCH ×3 (08:57→21:17)
[2021-10-19] MEDS: levoFLOXacin 500 MG TAB PO SCH (08:57)
[2021-10-19] MEDS: PANTOPRAZOLE 40MG TABLET PO SCH ×2 (08:57→17:01)
[2021-10-19] MEDS: SUCRALFATE 1 GM TABLET PO SCH ×4 (08:58→21:17)
[2021-10-19] MEDS ORDERED: TRAMADOL HCL 50 MG TAB PO PRN (15:22)
--- NOTE | 2021-10-20 06:09 | P.PN ---
Date of Service: 10/20/21 Subjective: Slight improvement in pain Minimal pain when laying, severe pain with ambulation No new symptoms Feels about 25% improved compared to yesterday ROS: 10 point ROS noted above, otherwise negative Physical exam GEN: Alert, oriented, NAD HEENT: Normal conjunctiva, sclera anicteric CV: Regular rate and rhythm, no edema Pulm: Nonlabored respirations on room air MSK: tenderness to palpation at R great toe - MCP joint, and ankle joint, swelling noted at joints, +warmth, no erythema, dilated varicose veins nontender Integumentary: No rashes Neuro: Normal speech, normal affect Problem List Superficial thrombophlebitis of right leg Suspect acute gout attack Recent sigmoid diverticulitis, with bleed; resolved Continue steroids for possible acute gout, patient with improvement states steroids seem to be helping the most uric acid level elevated Venous Doppler negative for DVT Continue with DVT prophylaxis Pain control Continue home medications Continue antibiotics for recent sigmoid diverticulitis diagnosis Hemoglobin stable No significant improvement, still unsteady with ambulation We will obtain MRI for further evaluation VTE: lovenox Code: full Dispo: anticipate dc home in 1-2 days Time Spent Managing Pts Care (In Minutes): 35
[2021-10-20 06:28] LABS: Absolute Lymphocytes (CBC) 1.9 K/uL (0.7-4.9); Lymphocytes % 15.2 % (15.3-44.8); MPV 9.9 fL (7.6-11.3); RBC Red Blood Cell Count 4.69 M/uL (4.33-5.43)
[2021-10-20 06:40] LABS: BUN Blood Urea Nitrogen 13 mg/dL (7-18); Bicarbonate 28 mmol/L (21-32); Glucose Level 125 mg/dL (74-106); Magnesium 2.4 mg/dL (1.8-2.4); Potassium 3.3 mmol/L (3.5-5.1); Sodium Level 140 mmol/L (136-145)
[2021-10-20] MEDS: levoFLOXacin 500 MG TAB PO SCH (08:44)
[2021-10-20] MEDS: metroNIDAZOLE 500 MG TABLET PO SCH ×3 (08:44→20:24)
[2021-10-20] MEDS: PANTOPRAZOLE 40MG TABLET PO SCH ×2 (08:44→16:44)
[2021-10-20] MEDS: SUCRALFATE 1 GM TABLET PO SCH ×4 (08:44→20:24)
[2021-10-20] MEDS: MORPHINE 2 MG/ML SYR IV PRN ×2 (08:45→20:55)
[2021-10-20] MEDS: HYDROCORTISONE SUC 100 MG INJ IV SCH ×3 (08:45→16:44)
[2021-10-20] MEDS ORDERED: POTASSIUM 25 MEQ EFFERV TAB PO ONE (09:00)
[2021-10-20] MEDS: POTASS/SODIUM PHOSPHATE 1 PKT POWD.PACK PO SCH ×3 (09:04→09:09)
[2021-10-20] MEDS ORDERED: NA CHLORIDE 0.9% 1,000 ML ONE (13:14)
--- NOTE | 2021-10-20 17:03 | RAD REPORT ---
EXAM DESCRIPTION: MRIFoot Right Wo Cont10/20/2021 4:39 pm CLINICAL HISTORY: Right foot pain COMPARISON: none TECHNIQUE: Axial, sagittal and coronal magnetic resonance imaging of the right foot was obtained. FINDINGS: No significant abnormal signal within the bones. Diffuse edema within the subcutaneous tissues. No abscess. No fracture or dislocation IMPRESSION: Diffuse edema within the subcutaneous tissues may indicate a cellulitis No evidence of osteomyelitis
[2021-10-21] MEDS: HYDROCORTISONE SUC 100 MG INJ IV SCH ×2 (00:04→08:23)
[2021-10-21 05:16] VITALS: BP 146/79
[2021-10-21 05:39] LABS: Absolute Lymphocytes (CBC) 1.9 K/uL (0.7-4.9); Hematocrit 45.5 % (39.6-49.0); Lymphocytes % 19.2 % (15.3-44.8); MPV 9.8 fL (7.6-11.3); RBC Red Blood Cell Count 4.53 M/uL (4.33-5.43)
[2021-10-21 05:54] LABS: BUN Blood Urea Nitrogen 15 mg/dL (7-18); Bicarbonate 29 mmol/L (21-32); Glucose Level 122 mg/dL (74-106); Potassium 3.1 mmol/L (3.5-5.1); Sodium Level 142 mmol/L (136-145)
--- NOTE | 2021-10-21 06:17 | P.PN ---
Date of Service: 10/21/21 Subjective: ROS: 10 point ROS noted above, otherwise negative Physical exam GEN: Alert, oriented, NAD HEENT: Normal conjunctiva, sclera anicteric CV: Regular rate and rhythm, no edema Pulm: Nonlabored respirations on room air MSK: tenderness to palpation at R great toe - MCP joint, and ankle joint, swelling noted at joints, +warmth, no erythema, dilated varicose veins nontender Integumentary: No rashes Neuro: Normal speech, normal affect Problem List Superficial thrombophlebitis of right leg Suspect acute gout attack Recent sigmoid diverticulitis, with bleed; resolved Continue steroids for possible acute gout, patient with improvement states steroids seem to be helping the most uric acid level elevated Venous Doppler negative for DVT Continue with DVT prophylaxis Pain control Continue home medications Continue antibiotics for recent sigmoid diverticulitis diagnosis Hemoglobin stable No significant improvement, still unsteady with ambulation We will obtain MRI for further evaluation VTE: lovenox Code: full Dispo: anticipate dc home in 1-2 days Time Spent Managing Pts Care (In Minutes): 35
[2021-10-21] MEDS: PANTOPRAZOLE 40MG TABLET PO SCH (08:22)
[2021-10-21] MEDS: SUCRALFATE 1 GM TABLET PO SCH (08:22)
[2021-10-21] MEDS: metroNIDAZOLE 500 MG TABLET PO SCH (08:22)
[2021-10-21] MEDS: levoFLOXacin 500 MG TAB PO SCH (08:23)
[2021-10-21] MEDS: MORPHINE 2 MG/ML SYR IV PRN (08:23)
[2021-10-21 08:46] VITALS: TEMP 97.1
--- NOTE | 2021-10-21 18:00 | P.DS ---
Admission Date: 10/19/21 Discharge Date: 10/21/21 Disposition: ROUTINE DISCHARGE Discharge Condition: GOOD Reason for Admission: RLE pain Procedures: Problem List Superficial thrombophlebitis of right leg Suspect acute gout attack Recent sigmoid diverticulitis, with bleed; resolved Brief History of Present Illness: 61-year-old gentleman who came to the hospital with right ankle pain. Patient had x-rays performed which were negative. Patient had venous Doppler which revealed no significant abnormalities. Initial thought was that patient had a right lower extremity DVT. However, on radiologist did not report this. Patient does have varicose veins. Patient may have thrombophlebitis. At this time, we will admit the patient to the hospital for observation. Hospital Course: Patient was found to have Right foot pain with some swelling and tenderness. Xray, MRI were negative for any fractures / acute process. Patient had improvement of his pain with initiation of steroids / treatment for likely gout flare. Uric acid was noted to be elevated, and patient's diet was high risk for gout in the recent months. He required a few days in the hospital due to severity of pain and difficulty ambulating, however this improved and he was able to ambulate around the room safely on day of discharge. Discharged home with 14 day taper of prednisone. Follow up with PCP in ~1 week. Discussed diet changes. Follow up with GI in next few weeks as previously discussed as follow up for recent diverticulitis. Vital Signs/Physical Exam: Physical exam GEN: Alert, oriented, NAD HEENT: Normal conjunctiva, sclera anicteric CV: Regular rate and rhythm, no edema Pulm: Nonlabored respirations on room air MSK: tenderness to palpation at R great toe - MCP joint, and ankle joint, swelling noted at joints, +warmth, no erythema, dilated varicose veins nontender Integumentary: No rashes Neuro: Normal speech, normal affect Temp Pulse Resp BP Pulse Ox 97.1 F 70 18 146/79 H 97 10/21/21 08:00 10/21/21 08:00 10/21/21 08:00 10/21/21 04:00 10/21/21 08:00 Laboratory Data at Discharge: WBC 10.10 K/uL (4.3-10.9) D 10/21/21 05:10 Hgb 15.6 g/dL (13.6-17.9) 10/21/21 05:10 Hct 45.5 % (39.6-49.0) 10/21/21 05:10 Plt Count 226 K/uL (152-406) 10/21/21 05:10 PT 15.7 SECONDS (9.5-12.5) H 10/19/21 05:20 INR 1.36 10/19/21 05:20 APTT 35.6 SECONDS (24.3-36.9) 10/19/21 05:20 Sodium 142 mmol/L (136-145) 10/21/21 05:10 Potassium 3.1 mmol/L (3.5-5.1) L 10/21/21 05:10 BUN 15 mg/dL (7-18) 10/21/21 05:10 Creatinine 0.59 mg/dL (0.55-1.3) 10/21/21 05:10 Glucose 122 mg/dL (74-106) H 10/21/21 05:10 Uric Acid 7.5 mg/dL (3.5-7.2) H 10/19/21 16:54 Magnesium 2.4 mg/dL (1.8-2.4) 10/20/21 05:51 Total Bilirubin 0.5 mg/dL (0.2-1.0) 10/19/21 05:20 AST 12 U/L (15-37) L 10/19/21 05:20 ALT 25 U/L (12-78) 10/19/21 05:20 Alkaline Phosphatase 72 U/L (45-117) 10/19/21 05:20 Home Medications: Ciprofloxacin HCl [Cipro 500 MG Tablet] 500 mg PO BID 10/18/21 Metronidazole 500 mg PO Q6H 10/18/21 Tramadol HCl [Ultram] 50 mg PO Q8H PRN 5 Days #15 tab 10/21/21 predniSONE [Prednisone] 20 mg PO SEECOM 14 Days #17 tablet 10/21/21 New Medications: predniSONE [Prednisone] 20 mg PO SEECOM 14 Days #17 tablet Tramadol HCl [Ultram] 50 mg PO Q8H PRN 5 Days #15 tab PRN Reason: Pain Scale 5-7 (Moderate) Physician Discharge Instructions: Patient was found to have Right foot pain with some swelling and tenderness. Xray, MRI were negative for any fractures / acute process. Patient had improvement of his pain with initiation of steroids / treatment for likely gout flare. Uric acid was noted to be elevated, and patient's diet was high risk for gout in the recent months. He required a few days in the hospital due to severity of pain and difficulty ambulating, however this improved and he was able to ambulate around the room safely on day of discharge. Discharged home with 14 day taper of prednisone. Follow up with PCP in ~1 week. Discussed diet changes. Follow up with GI in next few weeks as previously discussed as follow up for recent diverticulitis. Diet: Regular Activity: Fall precautions Followup: NONE,NONE [Primary Care Provider] - Time spent managing pt's care (in minutes): 45
== END 2021-10-21 10:20 | disposition home or self-care (01) | DRG 301 ==
LOC: ER 11:27 → INTOOBSV 14:25 → ERHOLD 14:25 → 2ND 16:08 → OBSVTOIN 10-19 19:33
PROVIDERS: ADMIT Hospitalist; ATTEND Hospitalist
DX: I80.01 Phlebitis and thrombophlebitis of superficial vessels of right lower extremity (principal); M10.9 Gout, unspecified; F17.210 Nicotine dependence, cigarettes, uncomplicated; Z79.899 Other long term (current) drug therapy; Z88.5 Allergy status to narcotic agent; Z79.52 Long term (current) use of systemic steroids; Z20.822 Contact with and (suspected) exposure to COVID-19
CPT/HCPCS: 36415; 80048; 80053; 83735; 84145; 84550; 85025; 85610; 85730; 86140; 93971; 96372; 96374; 96375; 99285; G0378; J1650; J1720; J2270; J2405; J7030; U0003

== ENCOUNTER 2023-04-02 16:21 | Emergency (ER) | payer SELFPAY ==
--- OUTSIDE RECORDS SUMMARY | 2023-04-02 16:24 | XMS REPORT | Continuity of Care Document ---
:1960 Author Organization [facility] [place] [facility] t Address [address] [place] [address] Care Team Providers Name Role Phone Dee CHURCH Jose E Attending Clinician Problems Condition Condition Condition Status Onset Resolution Last Treating Co mments Source Name Details Category Date Date Treatment Clinician Date No known No known Disease Unive rs active active ity of problems problems [facility] Allergies, Adverse Reactions, Alerts Allergy Allergy [...] Comments Source Sex Assigned At Uni versity [facility] Exposure to SARS-CoV-2 Not sure [facility] [place] [facility] Smoking Status Start Date Stop Date Source Unknown if ever smoked Universit y [facility] Medications Ordered Filled Start Stop Current Ordering Indication Dosage Frequency Signature Comments Components Source Medication Medication Date Date Medication? Clinician (SIG) Name Name amoxicillin 2019- No 1{tbl} 1 tablet, Univers -clavulanat 04-25 Oral, ity of e 04:00: 04:05 ONCE, 1 [place] (AUGMENTIN) 00 :00 dose, [facility] ical 875-125 mg 04/24/20 at [facility] per tablet 2300, 1 tablet ATN
Re ason for Anti-Infec tive: Documented Infection< br>Documen soledad Infection Site: Abdominal< br>Duratio n of Therapy: 7 days ibuprofen 2019- No 800mg 800 mg, Uni vers (IBU) 04-25 Oral, ity of tablet 800 02:30: 01:37 ONCE, 1 [place] as mg 00 :00 dose, [facility] 04/24/20 at Branch 2130, ANT ibuprofen 2019- Yes [id number] 800mg Take 1 Univers 800 mg 8-20 tablet by ity of tablet 00:00: mouth [place] 00 every 8 Medical (eight) Branch hours as needed for Temp > 38.5 C. amoxicillin 2020- No [id number] 1{tbl} Take 1 Univers -clavulanat 04-24 tablet by it y of e 875-125 00:00: 04:59 mouth [place] mg per 00 :00 every 12 Medical tablet (twelve) Branch hours for 7 days. naproxen Yes [id number] 550mg Take 1 Univers sodium 10-04 [id number] tablet by ity of (ANAPROX 00:00: mouth 2 [place] DS) 550 mg 00 (two) Medical tablet times Branch daily with meals. traMADol Yes [id number] 100mg Take 1 Univers 100 mg 24 -30 [id number] tablet by ity of hr tablet 00:00: mouth [place] 00 daily. [facility] Immunizations Ordered Filled Immunization Date Status Comments [facility] e Immunization Name Name Td 2017-03-06 Completed [facility] 00:00:00 [facility] Vital Signs Vital Name Observation Time Observation Value Comments Source Systolic blood 2020-04-25 04:00:00 148 mm[Hg] [facility] Diastolic blood 2020-04-25 04:00:00 91 mm[Hg] [facility] Heart rate 2020-04-25 04:00:00 97 /min [facility] Respiratory rate 2020-04-25 04:00:00 19 /min [facility] Oxygen saturation in 2020-04-25 04:00:00 96 /min [facility] Arterial blood by [facility] Pulse oximetry Branch Body temperature 2020-04-25 00:46:00 38.22 [facility] weight 2020-04-25 00:46:00 117.935 kg [facility] BMI 2020-04-25 00:46:00 36.26 kg/m2 [facility] Procedures Procedure Date / Time Performed Performing Clinician [facility] e CT ABDOMEN PELVIS WO 2020-04-25 02:17:00 Jose E [facility] COVID-19 (ID NOW RAPID 2020-04-25 02:00:00 [facility] Medical Branch URINALYSIS 2020-04-25 01:16:00 Jose E [facility] [place] [facility] NOTICE OF PRIVACY 2020-04-25 00:24:05 Doctor Unassigned, No [facility] PRACTICES Name Medical Branch CONSENT/REFUSAL FOR 2020-04-25 00:23:11 Doctor Unassigned, No [facility] AND Name Medical Branch TREATMENT Encounters Start End Encounter Admission Attending Care Care Encounter Source Date/Time Date/Time Type Type Clinicians Facility Department ID 2021-07-03 Emergency [facility] [id number] Univers 13:44:03 ity of [facility] 2020-04-24 2020-04-24 Emergency Dee [facility] [id number] Univers 19:48:00 23:23:00 Jose E [place] [id number] i ty [facility] [id number] [facility] [id number] [facility] 084 Branch Results Test Test Test Results Result Source Description Time Comments Comments CT ABDOMEN Impression: 1. Acute Univ ersity of PELVIS WO 21 sigmoid diverticulitis.2. [place] [facility] CONTRAST 03:40:49 Hepatomegaly.3. 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 It is used under [...] indicated. Lab Interpretation (test code = Normal 50876-9) [facility] Test Item Value Reference Range Interpretation Comments APPEARANCE (test code = Clear Clear 0725384602) COLOR (test code = Gwendolyn Yellow A 9280778142) PH (test code = 4.8-8.0 8492579946) SP GRAVITY (test code = 1.003-1.030 1411875319) GLU U QUAL (test code = Normal Normal 3742131679) BLOOD (test code = 3+ Negative A 8218800076) KETONES (test code = Negative Negative 0335746784) PROTEIN (test code = 100 mg/dL Negative A 2887-8) UROBILIN (test code = 4.0 mg/dL Normal A 1990120628) BILIRUBIN (test code = Negative Negative 7690641532) NITRITE (test code = Negative Negative 5610409707) LEUK ALTA (test code = Negative Negative 2662114989) RBC/HPF (test code = >182 See_Comment H [Autom ated message] 0789001827) The system [employer] generated this result transmit soledad reference range : 0 - 3 HPF. The refe rence range was not u sed to interpret th is result as normal/abnormal . WBC/HPF (test code = See_Comment [Autom ated message] 6351319234) The system [employer] generated this result transmit soledad reference range : 0 - 5 HPF. The refe rence range was not u sed to interpret th is result as normal/abnormal . BACTERIA (test code = Few Negative A 5539117449) MUCOUS (test code = Marked Negative LPF A 5009082111) Lab Interpretation (test Abnormal code = 46469-8) [facility]
[2023-04-02] MEDS ORDERED: NA CHLORIDE 0.9% 500 ML ONE (18:12)
[2023-04-02] MEDS ORDERED: KETOROLAC 30 MG/ML INJ ONE (18:12)
[2023-04-02 18:26] LABS: Absolute Lymphocytes (CBC) 2.3 K/uL (0.7-4.9); Hematocrit 54.8 % (39.6-49.0); Lymphocytes % 22.3 % (15.3-44.8); MCV 101.2 fL (80-100); MPV 9.1 fL (7.6-11.3); RBC Red Blood Cell Count 5.41 M/uL (4.33-5.43)
[2023-04-02 18:29] LABS: Protime INR 1.05
[2023-04-02 18:42] LABS: Albumin 3.4 g/dL (3.4-5.0); Bilirubin Total 0.5 mg/dL (0.2-1.0); Potassium 3.9 mEq/L (3.5-5.1); Protein, Total 7.6 g/dL (6.4-8.2)
--- NOTE | 2023-04-02 19:17 | RAD REPORT ---
EXAM DESCRIPTION: CTAbdomen Pelvis W Contrast - 04/02/2023 7:04 pm CLINICAL HISTORY: Abdominal pain. left hip pain, blood in stool COMPARISON: Abdomen Pelvis W Contrast dated 10/12/2021 TECHNIQUE: Biphasic CT imaging of the abdomen and pelvis was performed with 100 ml non-ionic IV cont rast. All CT scans are performed using dose optimization technique as appropriate and may include automated exposure control or mA/KV adjustment according to patient size. FINDINGS: The lung bases are clear. The liver, spleen, pancreas, adrenal glands and kidneys are within normal limits. No bowel obstruction, free air, free fluid or abscess. Nonvisualized appendix. Sigmoid diverticulosis coli is present with mild wall thickening. This could indicate early/mild diverticulitis. No eviden ce of significant lymphadenopathy. Severe osteoarthritis left hip. IMPRESSION: Early/mild acute diverticulitis of the sigmoid colon is possible. Colonoscopy followup w ould be advised. Severe osteoarthritis left hip.
--- NOTE | 2023-04-02 19:49 | EDPHYS ---
Physician Documentation [facility] Name: Randal Beckham Age: 63 yrs Sex: Male : 1960 Arrival Date: 04/02/2023 Time: 16:21 Bed 15 Private MD: ED Physician Jose D Rios HPI: 04/02 16:55 This 63 yrs old Male presents to ER via Wheelchair with complaints of Hip Pain. cp 16:55 The patient or guardian reports pain. The complaints affect the left hip. cp 16:55 pain started while standing went to turn and walk, left leg was planted. pain has been cp increasing over past week. 16:55 Associated signs and symptoms: Pertinent positives: dark colored stool with bowel cp movement this past Tuesday and then again with bowel movement today, Pertinent negatives: abdominal pain, anorexia, chest pain, diarrhea, fever, weakness. Historical: - Allergies: 16:52 Codeine; ll1 - PMHx: 16:52 Diverticulitis; ll1 - PSHx: 16:52 None; ll1 - Immunization history:: Adult Immunizations up to date. - Social history:: Smoking status: Patient reports the use of cigarette tobacco products, smokes one pack cigarettes per day. ROS: 17:00 Constitutional: Negative for body aches, chills, fever, poor PO intake. cp 17:00 Eyes: Negative for injury, pain, redness, and discharge. cp 17:00 ENT: Negative for drainage from ear(s), ear pain, sore throat, difficulty swallowing, difficulty handling secretions. 17:00 Cardiovascular: Negative for chest pain, edema, palpitations. 17:00 Respiratory: Negative for cough, shortness of breath, wheezing. 17:00 Abdomen/GI: Positive for dark colored stools, Negative for abdominal pain, vomiting, diarrhea, constipation. 17:00 : Negative for urinary symptoms, testicular pain 17:00 MS/extremity: Positive for pain, of the left hip, Negative for decreased range of motion, deformity, paresthesias. 17:00 Neuro: Negative for altered mental status, dizziness, headache, syncope, weakness. 17:00 All other systems are negative. Exam: 17:05 Constitutional: The patient appears in no acute distress, alert, awake, cp non-diaphoretic, non-toxic, well developed, well nourished, obese, uncomfortable. 17:05 Head/Face: Normocephalic, atraumatic. cp 17:05 Eyes: Periorbital structures: appear normal, Conjunctiva: normal, no exudate, no injection, Sclera: no appreciated abnormality, Lids and lashes: appear normal, bilaterally. 17:05 ENT: External ear(s): are unremarkable, Nose: is normal, Mouth: Lips: moist, Oral mucosa: pink and intact, moist, Posterior pharynx: is normal, airway is patent, no erythema, no exudate. 17:05 Chest/axilla: Inspection: normal, Palpation: is normal, no crepitus, no tenderness. 17:05 Cardiovascular: Rate: normal, Rhythm: regular, Edema: is not appreciated, JVD: is not appreciated. 17:05 Respiratory: the patient does not display signs of respiratory distress, Respirations: normal, no use of accessory muscles, no retractions, labored breathing, is not present, Breath sounds: are clear throughout, no decreased breath sounds, no stridor, no wheezing. 17:05 Abdomen/GI: Inspection: obese Bowel sounds: active, all quadrants, Palpation: soft, in all quadrants, nontender, in all quadrants. 17:05 Back: CVA tenderness, is absent, vertebral tenderness, is not appreciated. 17:05 Musculoskeletal/extremity: Extremities: noted in the left hip: pain, tenderness, ROM: limited active range of motion due to pain, in the left hip, Perfusion: the extremity is normally perfused throughout, the left leg Sensation intact. 17:05 Neuro: Orientation: to person, place \T\ time. Mentation: is normal, Motor: moves all fours, strength is normal, Sensation: is normal. Vital Signs: 16:50 BP 155 / 107; Pulse 96; Resp 20; Temp 97.4; Pulse Ox 94% on R/A; Weight 117.93 kg; ll1 Height 5 ft. 10 in. ; Pain 10/10; 16:50 Body Mass Index 37.31 (117.93 kg, 177.8 cm) ll1 16:50 Pain Scale: Adult ll1 MDM: 16:56 Patient medically screened. cp 19:47 Data reviewed: vital signs, nurses notes, lab test result(s), radiologic studies, CT cp scan. 19:47 Consideration of Admission/Observation Escalation of care including cp admission/observation considered. I considered the following discharge prescriptions or medication management in the emergency department Medications were administered in the Emergency Department. See MAR. Care significantly affected by the following chronic conditions: Obesity. 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 Response to treatment: the patient's symptoms have mildly improved after treatment, and as a result, I will discharge patient. 04/02 16:57 Order name: CBC with Diff; Complete Time: 18:53 04/02 18:53 Interpretation: Normal except: HGB 18.4; HCT 54.8; MCV 101.2. 04/02 16:57 Order name: CMP; Complete Time: 18:53 04/02 18:53 Interpretation: Normal except: CL 108; ALK 121; GLOB 4.2; A/G 0.8. 04/02 16:57 Order name: Lipase; Complete Time: 18:53 04/02 16:57 Order name: PT-INR; Complete Time: 18:53 cp 04/02 17:50 Order name: CT Abd/Pelvis - IV Contrast Only; Complete Time: 19:23 cp 04/02 19:23 Interpretation: Report reviewed. 04/02 16:57 Order name: IV Saline Lock; Complete Time: 18:24 04/02 16:57 Order name: Labs collected and sent; Complete Time: 18:24 cp Administered Medications: 18:10 Drug: Ketorolac IVP 15 mg Route: IVP; Site: right antecubital; nj1 18:10 Drug: NS 0.9% IV 500 ml Route: IV; Rate: bolus; Site: right antecubital; nj1 19:54 Drug: metroNIDAZOLE PO 500 mg Route: PO; mw 19:54 Drug: Ciprofloxacin PO 500 mg Route: PO; mw Disposition: 17:50 Co-signature as Attending Physician, Jose D COATS was immediately available on-site ms3 in the Emergency Department for consultation in the care of the patient. Disposition Summary: 04/02/23 19:47 Discharge Ordered Location: Home cp Problem: new cp Symptoms: have improved cp Condition: Stable cp Diagnosis - Diverticulitis of large intestine without perforation or abscess with bleeding cp - Pain in left hip cp Followup: cp - With: Jake Yeager MD - When: 2 - 3 days - Reason: diverticulitis, blood in stool Followup: cp - With: Jordon Frausto MD - When: 1 week - Reason: left hip pain Discharge Instructions: - Discharge Summary Sheet cp - Arthritis cp - High-Fiber Eating Plan cp - Diverticulitis cp - Hip Pain cp Forms: - Medication Reconciliation Form cp - Thank You Letter cp - Antibiotic Education cp - Prescription Opioid Use cp - Patient Portal Instructions cp Prescriptions: - Cipro 500 mg Oral Tablet - take 1 tablet by ORAL route every 12 hours for 10 days; 20 tablet; Refills: 0, cp Product Selection Permitted - Mobic 7.5 mg Oral Tablet - take 1 tablet by ORAL route once daily take with food; 30 tablet; Refills: 0, cp Product Selection Permitted - Metronidazole 500 mg Oral Tablet - take 1 tablet by ORAL route every 8 hours; 30 tablet; Refills: 0, Product cp Selection Permitted - Tramadol 50 mg Oral Tablet - take 1 tablet by ORAL route every 8 hours as needed; 12 tablet; Refills: 0, cp Product Selection Permitted Signatures: Dispatcher [employer] Silvia Redd RN RN Francisco Harper PA PA cp Lewis, Lynsay RN RN ll1 Jose D Rios DO DO ms3 Hali Gould RN RN nj1
--- NOTE | 2023-04-02 19:49 | ER ---
Nurse's Notes [facility] Name: Randal Beckham Age: 63 yrs Sex: Male : 1960 Arrival Date: 04/02/2023 Time: 16:21 Bed 15 Private MD: Diagnosis: Diverticulitis of large intestine without perforation or abscess with bleeding;Pain in left hip Presentation: 04/02 16:50 Chief complaint: Patient states: L hip and low back pain for 1 week. Blood in stool ll1 since Tuesday. No fever. Coronavirus screen: Vaccine status: Patient reports being unvaccinated. Client denies travel out of the [place] in the last 14 days. At this time, the client does not indicate any symptoms associated with coronavirus-19. Ebola Screen: Patient denies travel to an Ebola-affected area in the 21 days before illness onset. Initial Sepsis Screen: Does the patient meet any 2 criteria? No. Patient's initial sepsis screen is negative. Does the patient have a suspected source of infection? Yes: Bone or joint infection. Risk Assessment: Do you want to hurt yourself or someone else? Patient reports no desire to harm self or others. Onset of symptoms was March 26, 2023. 16:50 Method Of Arrival: Wheelchair ll1 16:50 Acuity: ASIF 2 ll1 Triage Assessment: 16:53 General: Appears uncomfortable, Behavior is calm, cooperative, appropriate for age. ll1 Pain: Complains of pain in L hip Pain currently is 10 out of 10 on a pain scale. Quality of pain is described as aching, throbbing. GI: Reports bloody stool. Musculoskeletal: Reports pain in L hip. Historical: - Allergies: 16:52 Codeine; ll1 - PMHx: 16:52 Diverticulitis; ll1 - PSHx: 16:52 None; ll1 - Immunization history:: Adult Immunizations up to date. - Social history:: Smoking status: Patient reports the use of cigarette tobacco products, smokes one pack cigarettes per day. Screenin:24 [facility] ED Fall Risk Assessment (Adult) History of falling in the last 3 months, nj1 including since admission Score/Fall Risk Level 0 - 2 = Low Risk Oriented to surroundings, Maintained a safe environment, Hourly rounding (assess needs \T\ fall precautionary measures) done. Abuse screen: Denies threats or abuse. Denies injuries from another. Nutritional screening: No deficits noted. Tuberculosis screening: No symptoms or risk factors identified. Assessment: 17:33 Reassessment: No changes from previously documented assessment. Patient and/or family ll1 updated on plan of care and expected duration. Pain level reassessed. Patient is alert, oriented x 3, equal unlabored respirations, skin warm/dry/pink. 18:10 Reassessment: Patient appears in no apparent distress at this time. No changes from [facility] previously documented assessment. Patient and/or family updated on plan of care and expected duration. Pain level reassessed. Patient is alert, oriented x 3, equal unlabored respirations, skin warm/dry/pink. Pain: Complains of pain in Hip, left Pain currently is 10 out of 10 on a pain scale. Vital Signs: 16:50 BP 155 / 107; Pulse 96; Resp 20; Temp 97.4; Pulse Ox 94% on R/A; Weight 117.93 kg; ll1 Height 5 ft. 10 in. ; Pain 10/10; 16:50 Body Mass Index 37.31 (117.93 kg, 177.8 cm) ll1 16:50 Pain Scale: Adult ll1 ED Course: 16:23 Patient arrived in ED. ts1 16:30 Francisco Jeter PA is PHCP. cp 16:30 Jose D Rios DO is Attending Physician. cp 16:52 Triage completed. ll1 16:53 Arm band placed on Patient placed in an exam room, on a stretcher. 1 17:52 Hali Gould, RN is Primary Nurse. [facility] 18:10 Provided Education on: fall precautions. al1 18:10 Patient has correct armband on for positive identification. Bed in low position. Call [facility] light in reach. Side rails up X 1. Adult w/ patient. 18:10 Inserted saline lock: 22 gauge in right antecubital area, using aseptic technique. al1 Blood collected. 19:05 CT Abd/Pelvis - IV Contrast Only In Process Unspecified. EDMS 19:46 Jake Yeager MD is Referral Physician. cp 19:47 Jordon Frausto MD is Referral Physician. cp Administered Medications: 18:10 Drug: Ketorolac IVP 15 mg Route: IVP; Site: right antecubital; nj1 18:10 Drug: NS 0.9% IV 500 ml Route: IV; Rate: bolus; Site: right antecubital; [facility] 19:54 Drug: metroNIDAZOLE PO 500 mg Route: PO; 19:54 Drug: Ciprofloxacin PO 500 mg Route: PO; Outcome: 19:47 Discharge ordered by MD. lawson 19:54 Patient left the ED. Signatures: Dispatcher [employer] EDMS Silvia Gomes RN RN Francisco Jeter PA PA Matias Argueta RN RN 1 Hali Gould RN RN nj1 Elizabeth Castañeda, [place] PAS ts1 Corrections: (The following items were deleted from the chart) 16:56 16:50 Acuity: ASIF 3 ll1 ll1
[2023-04-02] MEDS ORDERED: metroNIDAZOLE 500 MG TABLET ONE (19:56)
[2023-04-02] MEDS ORDERED: CIPROFLOXACIN HCL 500 MG TAB ONE (19:57)
[2023-04-02 20:42] VITALS: BP 155/107; TEMP 97.4; O2SAT 94
== END 2023-04-02 19:54 | disposition home or self-care (01) ==
LOC: ER 16:21
DX: K57.32 Diverticulitis of large intestine without perforation or abscess without bleeding (principal); M25.552 Pain in left hip
CPT/HCPCS: 36415; 74177; 80053; 83690; 85025; 85610; 96374; 99284; J7040; Q9967